=== PATIENT | male | born 1940 | race African-American/Black ===

== ENCOUNTER 2022-03-29 21:01 | Emergency (ER) | payer MEDICARE, OTHER ==
[~2022-03-29] VITALS: Ht 170.2 cm; Wt 61.2 kg
[2022-03-29 21:03] VITALS: BP 177/98
--- NOTE | 2022-03-29 21:03 | NUR ---
[facility] TO BED #8
--- NOTE | 2022-03-29 21:05 | NUR ---
Patient BIB by ALS from home. C/O shortness of breath x today. Per reported, patient had shortness of breath today, no chest pain, EKG- A-Fib (new onset), no medications given at the scence. A/O,X4, SOB, place oxygen canula 3 L/min, Stat EKG at bedside, no chest pain. PMHx: Chronic back pain, DENIES (COPD and Heart problems- per patient).
--- NOTE | 2022-03-29 21:06 | NUR ---
Dr. Echeverria examining patient.
--- NOTE | 2022-03-29 21:10 | NUR ---
COVID-19 swabs collected and sent to lab.
--- NOTE | 2022-03-29 21:30 | NUR ---
[facility] AT BEDSIDE
[2022-03-29 21:32] LABS: BASOPHILS # (AUTO) 0.1 K/uL (0.00-0.22); BASOPHILS % (AUTO) 1.5 % (0.0-2.0); EOSINOPHILS # (AUTO) 0.1 K/uL (0-0.4); EOSINOPHILS % (AUTO) 1.2 % (0.0-4.0); LYMPHOCYTES # (AUTO) 2.2 K/uL (2.0-11.5); LYMPHOCYTES % (AUTO) 37.8 % (20.5-51.1); MEAN CORPUSCULAR HEMOGLOBIN 29 pg (27-31); MEAN CORPUSCULAR HGB CONC 33 g/dL (33-37); MEAN CORPUSCULAR VOLUME 85.5 fL (80-94); MONOCYTES # (AUTO) 0.7 K/uL (0.8-1.0); NEUTROPHILS # (AUTO) 2.8 K/uL (1.8-7.7); NEUTROPHILS % (AUTO) 47.5 % (42.2-75.2); PLATELET COUNT (AUTO) 179 K/uL (140-450); RED BLOOD CELL COUNT(AUTO) 3.86 MIL/uL (4.20-6.10); RED CELL DISTRIBUTION WIDTH 14.7 % (11.6-13.7); WHITE BLOOD COUNT (AUTO) 5.9 K/uL (4.8-10.8)
--- NOTE | 2022-03-29 21:52 | NUR ---
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 Patient had history of heavy smoker.
[2022-03-29 21:53] LABS: ALBUMIN 3.2 g/dL (3.4-5.0); ANION GAP 15.5 (8-16); ASPARTATE AMINOTRANSFERASE 70 U/L (15-37); CARBON DIOXIDE 23.5 mmol/L (21-32); CHLORIDE 106 mmol/L (98-107); CREATININE 1.5 mg/dL (0.6-1.3); GLUCOSE 100 mg/dL (74-106); LIPASE 175 U/L (73-393); MAGNESIUM 1.6 mg/dL (1.8-2.4); SODIUM SERUM 142 mmol/L (136-145); TOTAL BILIRUBIN 0.7 mg/dL (0.0-1.0); UREA NITROGEN, BLOOD 23 mg/dL (7-18)
--- NOTE | 2022-03-29 22:37 | NUR ---
PT TRANSPORTED TO CT VIA [facility]
--- NOTE | 2022-03-29 23:05 | NUR ---
PT RETURNED FROM CT.
--- NOTE | 2022-03-29 23:19 | NUR ---
Provided Sanwiches and [place] juice as request, Ok by Dr. Echeverria.
[2022-03-29] MEDS ORDERED: FUROSEMIDE 20 MG/2 ML VIAL IVP ONE (23:45)
[2022-03-29] MEDS ORDERED: ASPIRIN 325 MG TAB PO ONE (23:45)
[2022-03-30] MEDS ORDERED: KCL 20 MEQ/WATER INJ PREMIX 100 ML IV ONE (00:10)
--- NOTE | 2022-03-30 01:15 | NUR ---
Patient is sleeping.
--- NOTE | 2022-03-30 02:05 | NUR ---
Patient to be transferred to [facility]. Is being transferred due to High level of care and insurance. Receiving facility has accepting physician and available space. ER physician has signed transfer form. Patient or responsible republican has agreed to transfer and signed form. Patient belongings inventoried and will be sent with patient. Copy of nursing notes, lab reports, EKG, Physicians Orders and X-rays to be sent with patient. Report called to SY Bautista at receiving facility. ALS ambulance service has been called for transfer. ETA is 30 minutes.
--- NOTE | 2022-03-30 02:16 | NUR ---
Called patient's family (Nuria), patient will transfer to [facility], Room 357 B
--- NOTE | 2022-03-30 02:28 | NUR ---
[facility] AT BEDSIDE FOR [place]
[2022-03-30 02:34] VITALS: BP 155/62
== END 2022-03-30 02:28 | disposition short-term general hospital (02) ==
LOC: MED 21:01
DX: I21.4 Non-ST elevation (NSTEMI) myocardial infarction (principal); I50.9 Heart failure, unspecified; Z20.822 Contact with and (suspected) exposure to COVID-19; R07.9 Chest pain, unspecified; R00.0 Tachycardia, unspecified; F17.210 Nicotine dependence, cigarettes, uncomplicated; Z98.890 Other specified postprocedural states
CPT/HCPCS: 36415; 71045; 71275; 80053; 83690; 83735; 83880; 84484; 85025; 87426; 93005; 96361; 96374; 99291; J1940; J3480; Q9967